=== PATIENT | female | born 1970 | race Two or more races ===

== ENCOUNTER → 2016-09-20 | Outpatient (CLI) | payer BC | END | disposition home or self-care (01) | LOC: CFH 15:26 | PROVIDERS: ATTEND Obstetrics & Gynecology | DX: Z12.31 Encounter for screening mammogram for malignant neoplasm of breast (principal); R92.2 Inconclusive mammogram | CPT/HCPCS: G0202 ==

== ENCOUNTER → 2017-10-25 | Outpatient (CLI) | payer BC | END | disposition home or self-care (01) | LOC: CFH 15:52 | PROVIDERS: ATTEND Obstetrics & Gynecology | DX: Z12.31 Encounter for screening mammogram for malignant neoplasm of breast (principal) | CPT/HCPCS: 77063; 77067 ==

== ENCOUNTER → 2018-11-28 | Outpatient (CLI) | payer BC | END | disposition home or self-care (01) | LOC: CFH 14:24 | PROVIDERS: ATTEND Obstetrics & Gynecology | DX: Z12.31 Encounter for screening mammogram for malignant neoplasm of breast (principal) | CPT/HCPCS: 77063; 77067 ==

== ENCOUNTER → 2020-01-13 | Outpatient (CLI) | payer BC | END | disposition home or self-care (01) | LOC: CFH 15:09 | PROVIDERS: ATTEND Obstetrics & Gynecology | DX: N60.02 Solitary cyst of left breast (principal); R92.2 Inconclusive mammogram | CPT/HCPCS: 76642; 77065 ==

== ENCOUNTER 2020-08-07 06:37 | Outpatient (CLI) | payer BC | END 2020-08-07 23:59 | disposition home or self-care (01) | LOC: CFH 06:37 | PROVIDERS: ATTEND Obstetrics & Gynecology | DX: N60.01 Solitary cyst of right breast (principal) | CPT/HCPCS: 76642; 77061; 77065; G0279 ==